=== PATIENT | female | born 1945 | race Caucasian/White ===

== ENCOUNTER 2025-05-01 07:36 | Day surgery (SDC) | payer MEDICARE ==
[~2025-05-01] VITALS: Ht 147.3 cm; Wt 48.1 kg
[~2025-05-01 07:36] MED LIST: CEFD300CAP PO; LEXA1TAB2 PO; LISI10TA22 PO
[2025-05-01] MEDS ORDERED: LIDOCAINE 2% 100 MG/5 ML SDV (FOR ANES.) As Ordered ONE (08:08)
[2025-05-01] MEDS ORDERED: dexAMETHasone 4 MG/ML 1 ML VIAL As Ordered ONE (08:08)
[2025-05-01] MEDS ORDERED: ACETAMINOPHEN 1000MG/100ML IV BAG As Ordered ONE (08:10)
[2025-05-01] MEDS ORDERED: ONDANSETRON 4MG 2ML VIAL As Ordered ONE (08:10)
[2025-05-01] MEDS: LR 1,000 ML IV SCH (08:15)
[2025-05-01] MEDS: ceFAZolin SOD 2 GM IV ONCE IV ONE (08:57)
[2025-05-01] MEDS: LevoFLOXacin 500 MG/100 ML IV BAG As Ordered ONE (09:15)
[2025-05-01] MEDS: ISOVUE-300 61% 100 ML VIAL As Ordered ONE (09:45)
[2025-05-01 11:15] VITALS: BP 126/55; TEMP 97.8; O2SAT 97
== END 2025-05-01 11:20 | disposition home or self-care (01) ==
LOC: M SDC 07:36
PROVIDERS: ATTEND Urology
DX: N13.2 Hydronephrosis with renal and ureteral calculous obstruction (principal); I10 Essential (primary) hypertension; F41.9 Anxiety disorder, unspecified; Z88.0 Allergy status to penicillin; Z88.2 Allergy status to sulfonamides; Z90.49 Acquired absence of other specified parts of digestive tract
CPT/HCPCS: 52356; 76000; 82365; C1769; C2617; J0131; J1100; J1956; J2405; J3010; Q9967

== ENCOUNTER 2025-05-06 11:27 | Emergency (ER) | payer MEDICARE ==
[~2025-05-06] VITALS: Ht 144.8 cm; Wt 47.2 kg
[2025-05-06 13:31] LABS: BASO # 0.0 10^3/uL (0.0-0.2); BASO % 0.2 % (0.0-1.0); EOS # 0.0 10^3/uL (0.0-0.5); EOS % 0.1 % (0.0-3.0); LYMPH # 1.6 10^3/uL (1.5-5.0); LYMPH % 13.3 % (24.0-44.0); MONO # 0.8 10^3/uL (0.0-0.8); MONO % 6.4 % (2.0-8.0); NEUTROPHILS # 9.8 10^3/uL (1.5-8.5); NEUTROPHILS % 79.6 % (36.0-66.0); PLATELET COUNT, AUTOMATED 234 10^3/uL (150-450)
[2025-05-06 13:33] LABS: KETONE, URINE AUTO RFX NEGATIVE (NEGATIVE); MUCUS, URINE RFX SMALL (NEGATIVE); NITRITE, URINE AUTO RFX NEGATIVE (NEGATIVE); RBC, URINE AUTO RFX TNTC /HPF (0-3); SQUAM EPITHELIAL CELL UR AURFX 1 /HPF (0-6)
[2025-05-06 13:56] LABS: LEUKOCYTE ESTERASE UR AUTO RFX 2+ (NEGATIVE); WBC, URINE AUTO RFX 11 /HPF (0-3)
[2025-05-06 13:57] LABS: ALT/SGPT 15 U/L (7.0-40); AST/SGOT 22 U/L (<34); CALCIUM LEVEL 9.8 MG/DL (8.3-10.6); CARBON DIOXIDE LEVEL 28 MMOL/L (20-31); CHLORIDE LEVEL 105 MMOL/L (98-107); CREATININE FOR GFR 0.59 MG/DL (0.55-1.30); GLOMERULAR FILTRATION RATE > 90.0 (>39); POTASSIUM SERUM 4.8 MMOL/L (3.5-5.1); SODIUM LEVEL 143 MMOL/L (136-145)
[2025-05-06] MEDS ORDERED: CEPH500C PO (15:40)
[2025-05-06] MEDS: MAGNESIUM CITRATE 300 ML BTL PO ONE (15:40)
[2025-05-06] MEDS ORDERED: COLA100C5 PO (15:40)
[2025-05-06 16:10] VITALS: BP 164/77; TEMP 98.7; O2SAT 99
== END 2025-05-06 16:22 | disposition home or self-care (01) ==
LOC: M ED 11:27
DX: N39.0 Urinary tract infection, site not specified (principal); R10.9 Unspecified abdominal pain; I10 Essential (primary) hypertension; Z88.0 Allergy status to penicillin; Z88.2 Allergy status to sulfonamides; Z79.2 Long term (current) use of antibiotics; Z79.899 Other long term (current) drug therapy